=== PATIENT | female | born 1960 | race Asian ===

== ENCOUNTER 2019-04-28 19:47 | Inpatient (IN) | payer OTHER ==
[~2019-04-28] VITALS: Ht 157.5 cm; Wt 52.7 kg
[2019-04-28 20:45] VITALS: Ht 157.5 cm; Wt 52.7 kg
[2019-04-28 21:35] LABS: BASOPHIL % 0.3 % (0-2); PLATELET COUNT 332 x10^3mcL (130-400); RED CELL DISTRIBUTION WIDTH 13.5 % (11.5-14.5)
[2019-04-28 21:43] LABS: CALCIUM 8.5 mg/dL (8.5-10.1); CARBON DIOXIDE 28.3 mmol/L (21-32); CHLORIDE SERUM 102 mmol/L (98-107); CREATININE SERUM 0.7 mg/dL (0.6-1.0); GFR1 > 60 mL/min; GLUCOSE SERUM 78 mg/dL (74-106); POTASSIUM SERUM 3.2 mmol/L (3.5-5.1); SODIUM SERUM 141 mmol/L (136-145)
[2019-04-28 21:47] LABS: ALBUMIN 3.6 g/dL (3.4-5.0); ALKALINE PHOSPHATASE 83 U/L (46-116); ALT/SGPT 19 U/L (14-59); AST/SGOT 18 U/L (15-37); BILIRUBIN TOTAL 0.39 mg/dL (0.20-1.00); LIPASE 103 IU/L (73-393)
[2019-04-29 02:14] VITALS: BP 105/49
[2019-04-29 05:24] VITALS: BP 112/69
[2019-04-29 08:05] VITALS: BP 98/54
== END 2019-04-29 17:20 | disposition home or self-care (01) | DRG 392 ==
LOC: ED 19:47 → MU 04-29 00:51
PROVIDERS: Emergency Medicine; Internal Medicine; ADMIT Internal Medicine
PROC: 0DJ08ZZ Inspection of Upper Intestinal Tract, Via Natural or Artificial Opening Endoscopic (ICD-10-PCS; principal; 2019-04-29 10:30)
PROC: 0DBF8ZX Excision of Right Large Intestine, Via Natural or Artificial Opening Endoscopic, Diagnostic (ICD-10-PCS; 2019-04-29 10:30)
DX: R10.9 Unspecified abdominal pain (principal); K92.1 Melena; T50.995A Adverse effect of other drugs, medicaments and biological substances, initial encounter; Y92.230 Patient room in hospital as the place of occurrence of the external cause; Z79.899 Other long term (current) drug therapy; C53.9 Malignant neoplasm of cervix uteri, unspecified
CPT/HCPCS: 43235; 45378; 88344; G0378; J1200; J1610; J2250; J2270; J2310; J2405; J3010; J3480; J3490; J7030

== ENCOUNTER 2019-05-07 21:22 | Emergency (ER) | payer OTHER ==
[~2019-05-07] VITALS: Ht 160 cm; Wt 50.3 kg
[2019-05-07 21:26] VITALS: Ht 160 cm; Wt 50.3 kg
[2019-05-07 23:00] LABS: BASOPHIL % 0.5 % (0-2); PLATELET COUNT 344 x10^3mcL (130-400); RED CELL DISTRIBUTION WIDTH 13.1 % (11.5-14.5)
[2019-05-07 23:19] LABS: CARBON DIOXIDE 27.9 mmol/L (21-32); CHLORIDE SERUM 102 mmol/L (98-107); GLUCOSE SERUM 96 mg/dL (74-106); POTASSIUM SERUM 3.5 mmol/L (3.5-5.1); SODIUM SERUM 139 mmol/L (136-145)
[2019-05-07 23:20] LABS: ALBUMIN 3.8 g/dL (3.4-5.0); ALKALINE PHOSPHATASE 84 U/L (46-116); ALT/SGPT 24 U/L (14-59); AST/SGOT 18 U/L (15-37); CALCIUM 9.1 mg/dL (8.5-10.1); CREATININE SERUM 0.6 mg/dL (0.6-1.0); GFR1 > 60 mL/min; TOTAL PROTEIN, SERUM 7.7 g/dL (6.4-8.2)
[2019-05-08 03:23] VITALS: BP 110/72
== END 2019-05-08 03:23 | disposition home or self-care (01) ==
LOC: ED 21:22
PROVIDERS: Emergency Medicine
DX: K92.1 Melena (principal); Z98.890 Other specified postprocedural states
CPT/HCPCS: 36415; Q0162